=== PATIENT | female | born 1995 | race Caucasian/White ===

== ENCOUNTER 2018-12-16 06:49 | Day surgery (SDC) | payer OTHER, MEDICAID ==
[~2018-12-16 06:49] MED LIST: Lactated Ringers 1,000 ML IV SCH
[2018-12-16] MEDS ORDERED: Propofol 200 MG/20 ML SDV IV ONE (06:50)
[2018-12-16] MEDS ORDERED: Lidocaine 2% 100 MG/5 ML Syringe IVPUSH ONE (06:50)
--- NOTE | 2018-12-16 08:27 | PCM.OPNOTE ---
- General Post-Op/Procedure Note Date of Surgery/Procedure: 12/16/18 Operative Procedure(s): egd with bx. c scope Findings: normal terminal ileum internal hemorrhoid gastritis Pre Op Diagnosis: nausea. hematochezia Post-Op Diagnosis: normal terminal ileum. internal hemorrhoid. gastritis Anesthesia Technique: [facility] [place] Primary Surgeon: Heath Estes Anesthesia Provider: Yuan Huddleston Pathology: stomach Complications: None Condition: Good Free Text/Narrative:: see dictation
--- NOTE | 2018-12-16 11:27 | OR ---
DATE OF OPERATION: 12/16/2018 SURGEON: Heath Estes MD PROCEDURE PERFORMED: EGD with cold forceps biopsy and colonoscopy. PREOPERATIVE DIAGNOSES: History of nausea as well as hematochezia. POSTOPERATIVE DIAGNOSES: Gastritis and internal hemorrhoids. INDICATIONS FOR PROCEDURE: This is a 23-year-old white female who is referred with the above-mentioned complaints. She was offered and accepted endoscopic workup. DESCRIPTION OF OPERATION: After an excellent IV sedation was administered, digital rectal exam was performed. No marked abnormality was noted. Flexible colonoscope was inserted and advanced to the cecum. The prep was excellent. The following findings were noted. On intubation of the terminal ileum, the terminal ileum appeared to be unremarkable. The ascending colon was unremarkable. The transverse colon was unremarkable. The descending colon was unremarkable. Sigmoid and rectum were unremarkable. The colon was deflated as the scope was removed. The patient tolerated the procedure. Prior to this procedure, the upper endoscopy was performed. The bite-block was inserted. The flexible endoscope was passed without difficulty down the patient's esophagus into the stomach. The stomach was insufflated. The scope was passed through the pylorus to the second portion of duodenum and then slowly withdrawn. The following findings were noted. The duodenum was unremarkable. The stomach demonstrated diffuse gastritis. Multiple biopsies were taken. The esophagus was unremarkable. The stomach was deflated, scope was removed. Results by letter. /[id number] /MODL
== END 2018-12-16 09:08 | disposition home or self-care (01) ==
LOC: FB.SDS 06:49
PROVIDERS: ATTEND Surgery
DX: K29.51 Unspecified chronic gastritis with bleeding (principal); K64.8 Other hemorrhoids; F17.210 Nicotine dependence, cigarettes, uncomplicated; E66.01 Morbid (severe) obesity due to excess calories; Z68.41 Body mass index [BMI] 40.0-44.9, adult; Z88.0 Allergy status to penicillin; Z91.018 Allergy to other foods; Z88.2 Allergy status to sulfonamides; Z79.899 Other long term (current) drug therapy
CPT/HCPCS: 43239; 45378; 81025; 88305; 88342; J2001; J2704; J7120

== ENCOUNTER 2020-07-14 23:33 | Emergency (ER) | payer MEDICAID, OTHER ==
[2020-07-14] MEDS ORDERED: traMADol 50 MG Tab PO ONE (23:34)
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
== END 2020-07-15 00:02 | disposition home or self-care (01) ==
LOC: FB.ED 23:33
DX: T23.101A Burn of first degree of right hand, unspecified site, initial encounter (principal); T22.111A Burn of first degree of right forearm, initial encounter; T31.0 Burns involving less than 10% of body surface; E66.9 Obesity, unspecified; Z68.41 Body mass index [BMI] 40.0-44.9, adult; Z88.0 Allergy status to penicillin; Z91.018 Allergy to other foods; Z88.2 Allergy status to sulfonamides; Z79.899 Other long term (current) drug therapy; X12.XXXA Contact with other hot fluids, initial encounter
CPT/HCPCS: 99283; A9270

== ENCOUNTER 2021-06-28 22:36 | Emergency (ER) | payer MEDICAID, OTHER ==
[2021-06-28] MEDS ORDERED: Ibuprofen 800 MG Tab PO STA (22:43)
[2021-06-28] MEDS ORDERED: Acetaminophen 500 MG Tab PO STA (22:43)
--- NOTE | 2021-06-28 23:41 | EDM.PDOC ---
ED HPI GENERAL MEDICAL PROBLEM - General Stated Complaint: KNEE Time Seen by Provider: 06/28/21 22:57 Source of Information: Reports: Patient History Limitations: Reports: No Limitations - History of Present Illness INITIAL COMMENTS - FREE TEXT/NARRATIVE: Patient presented to the ED because of left knee pain. The pain is shap,10/10 at the anterior and lateral aspect of the left knee. She fell sometime in December, no xray done and pain keeps coming back. Left Knee Pain Score (Numeric/FACES): 10 - Related Data Allergies Allergy/AdvReac Type Severity Reaction Status Date / Time Penicillins Allergy Unknown Hives Verified 07/14/20 23:49 strawberry [[place]] Allergy Unknown Hives Verified 07/14/20 23:49 Sulfa (Sulfonamide Allergy Rash Verified 07/14/20 23:49 Antibiotics) JALAPENO SEEDS Allergy Swelling Uncoded 12/16/18 07:28 Home Meds: Home Meds Acetaminophen [Acetaminophen Extra Strength] 500 - 1,000 mg PO Q4H PRN 12/13/18 [History] Albuterol Sulfate [Albuterol Sulfate Hfa] 2 puff IH Q4HR PRN 12/13/18 [History] Cetirizine [ZyrTEC] 10 mg PO DAILY 12/13/18 [History] Multivitamin with Minerals [Multiple Vitamin] 1 ea PO DAILY 12/13/18 [History] Omeprazole 20 mg PO DAILY 12/13/18 [History] Sucralfate [Carafate] 1 gm PO QID 12/13/18 [History] hydrOXYzine HCL [hydrOXYzine] 25 mg PO BID PRN 12/13/18 [History] norgestimate-ethinyl estradioL [[place]-Linyah 28 Tablet] 1 ea PO DAILY 12/13/18 [History] Past Medical History - Past Health History Medical/Surgical History: Denies Medical/Surgical History HEENT History: Reports: Allergic Rhinitis, Impaired Vision Cardiovascular History: Reports: None Respiratory History: Reports: SOB Gastrointestinal History: Reports: None Genitourinary History: Reports: None [employer] History: Reports: None Musculoskeletal History: Reports: Other (See Below) Other Musculoskeletal History: INGROWING TOENAIL 2013 Neurological History: Reports: None Psychiatric History: Reports: Anxiety Endocrine/Metabolic History: Reports: Obesity/BMI 30+ Hematologic History: Reports: None Immunologic History: Reports: None Oncologic (Cancer) History: Reports: None Dermatologic History: Reports: None - Past Surgical History Head Surgeries/Procedures: Reports: None HEENT Surgical History: Reports: Oral Surgery Other HEENT Surgeries/Procedures: WISDOM TEETH EXTRACTION Cardiovascular Surgical History: Reports: None Respiratory Surgical History: Reports: None GI Surgical History: Reports: None Female Surgical History: Reports: None Endocrine Surgical History: Reports: None Neurological Surgical History: Reports: None Musculoskeletal Surgical History: Reports: None Oncologic Surgical History: Reports: None Dermatological Surgical History: Reports: None Social & Family History - Family History Family Medical History: No Pertinent Family History - Caffeine Use Caffeine Use: Reports: Coffee, Tea Review of Systems - Review of Systems Review Of Systems: See Below Constitutional: Reports: No Symptoms Eyes: Reports: No Symptoms Ears: Reports: No Symptoms Nose: Reports: No Symptoms Mouth/Throat: Reports: No Symptoms Respiratory: Reports: No Symptoms Cardiovascular: Reports: No Symptoms GI/Abdominal: Reports: No Symptoms Genitourinary: Reports: No Symptoms Musculoskeletal: Reports: Other (left knee pain) Neurological: Reports: No Symptoms Psychiatric: Reports: No Symptoms ED EXAM, GENERAL - Physical Exam Exam: See Below Exam Limited By: No Limitations General Appearance: Alert, No Apparent Distress Eye Exam: Bilateral Eye: PERRL Ears: Normal External Exam, Normal Canal Nose: Normal Inspection, Normal Mucosa, No Blood Throat/Mouth: Normal Inspection, Normal Lips, Normal Teeth, Normal Gums, Normal Oropharynx Head: Atraumatic, Normocephalic Neck: Normal Inspection, Supple, Non-Tender Respiratory/Chest: No Respiratory Distress, Lungs Clear, Normal Breath Sounds, No Accessory Muscle Use Cardiovascular: Normal Peripheral Pulses, Regular Rate, Rhythm, No Edema, No Gallop, No JVD, No Murmur, No Rub GI/Abdominal: Normal Bowel Sounds, Soft, Non-Tender, No Organomegaly Back Exam: Normal Inspection, Full Range of Motion Extremities: Normal Inspection, Normal Range of Motion, No Pedal Edema, Other (tenderness lateral aspect of left knee) Neurological: Alert, Oriented Psychiatric: Normal Affect Skin Exam: Warm Course - Vital Signs Text/Narrative:: Xray left knee-see result Last Recorded V/S: Last Vital Signs Temp 36.5 C 06/28/21 23:00 Pulse 96 06/28/21 23:00 Resp 20 06/28/21 23:00 BP 135/69 06/28/21 23:00 Pulse Ox 99 06/28/21 23:00 - Orders/Labs/Meds Meds: Medications Discontinued Medications Generic Name Dose Route Start Last Admin Trade Name Alo PRN Reason Stop Dose Admin Acetaminophen 1,000 mg 06/28/21 22:43 06/28/21 22:51 Acetaminophen 500 Mg Tab PO 06/28/21 22:44 1,000 mg NOW STA Administration Ibuprofen 800 mg 06/28/21 22:43 06/28/21 22:51 Ibuprofen 800 Mg Tab PO 06/28/21 22:44 800 mg NOW STA Administration Departure - Departure Time of Disposition: 22:45 Disposition: Home, Self-Care 01 Condition: Good Clinical Impression: Knee sprain - Discharge Information Instructions: Knee Sprain, Adult, [id number] Referrals: Rxoie Joya NP [Primary Care Provider] - Forms: ED Department Discharge Additional Instructions: Please read discharge instructions on knee sprain The xray of your knee-is negative-there is no fracture or dislocation but ligament strain Take ibuprofen 800 mg with tylenol 1000 mg every 8 hours as needed for pain Follow up as needed
--- NOTE | 2021-06-29 10:58 | CR ---
LEFT KNEE INDICATION: No recent trauma. Left knee pain. FINDINGS: Three views of the left knee reveal minimal hypertrophic changes at the intercondylar spines. There appears to be mild prominence at the suprapatellar bursa raising the question of a small knee joint effusion. No other significant bone or joint abnormality was suggested with knee joint spaces well maintained in appearance. Normal bone density was noted. No acute fracture or dislocation was seen. IMPRESSION: Minimal hypertrophic changes at the intercondylar spines with question of minimal left knee joint effusion. MTDD
== END 2021-06-28 23:43 | disposition home or self-care (01) ==
LOC: FB.ED 22:36
DX: S83.92XA Sprain of unspecified site of left knee, initial encounter (principal); E66.9 Obesity, unspecified; Z88.0 Allergy status to penicillin; Z88.2 Allergy status to sulfonamides; Z91.018 Allergy to other foods; Z68.43 Body mass index [BMI] 50.0-59.9, adult; Z79.899 Other long term (current) drug therapy; X58.XXXA Exposure to other specified factors, initial encounter
CPT/HCPCS: 73564-LT; 99283-25; A9270-GY